=== PATIENT | female | born 1975 | race African-American/Black ===

== ENCOUNTER 2022-02-01 16:04 | Emergency (ER) | payer MEDICAID ==
[~2022-02-01] VITALS: Ht 167.6 cm; Wt 59.0 kg
[2022-02-01 17:27] LABS: BASOPHILS % 0.9 % (0.0-2.0); EOSINOPHILS % 2.2 % (0.0-5.0); HEMATOCRIT. 38.4 % (36.0-48.0); HEMOGLOBIN. 12.2 g/dL (12.0-16.0); LYMPHOCYTES % 36.9 % (20.0-50.0); MEAN CORPUSCULAR HEMOGLOBIN 23.9 pg (28.0-32.0); MEAN CORPUSCULAR VOLUME 75.6 fL (81.0-99.0); MEAN PLATELET VOLUME 7.1 fl (7.4-10.4); MONOCYTES % 6.3 % (2.0-8.0); NEUTROPHILS % 53.7 % (40.0-76.0); PLATELET 341 x1000/uL (130-400); RED BLOOD CELL COUNT 5.08 mill/uL (4.2-5.4); RED CELL DISTRIBUTION WIDTH 15.9 % (11.6-14.6)
[2022-02-01 17:39] LABS: CHLORIDE 105 mEq/L (98-107)
[2022-02-01 17:40] LABS: ETHANOL BLOOD < 10 mg/dL; HCG SCREEN NEGATIVE
[2022-02-01 19:10] LABS: *BARBITURATES SCREEN URINE NEGATIVE (NEGATIVE); *BENZODIAZEPINES SCREEN URINE NEGATIVE (NEGATIVE); CANNABINOID URINE SCREEN NEGATIVE (NEGATIVE); METHADONE URINE SCREEN NEGATIVE (NEGATIVE); OPIATES URINE SCREEN NEGATIVE (NEGATIVE); PHENCYCLIDINE URINE SCREEN NEGATIVE (NEGATIVE)
[2022-02-01 19:22] LABS: *AMPHETAMINES SCREEN URINE PRESUMTIVE POSITIVE (NEGATIVE); *COCAINE SCREEN URINE PRESUMTIVE POSITIVE (NEGATIVE)
[2022-02-01 21:20] VITALS: BP 115/80
== END 2022-02-01 21:20 | disposition home or self-care (01) ==
LOC: ER 16:04
DX: T40.5X1A Poisoning by cocaine, accidental (unintentional), initial encounter (principal); F14.188 Cocaine abuse with other cocaine-induced disorder; R55 Syncope and collapse; R06.81 Apnea, not elsewhere classified; T43.621A Poisoning by amphetamines, accidental (unintentional), initial encounter; F15.188 Other stimulant abuse with other stimulant-induced disorder; Y92.810 Car as the place of occurrence of the external cause
CPT/HCPCS: 36415; 71045; 80053; 80305; 80307; 80320; 80329; 82553; 83605; 84484; 84703; 85025; 93005; 99285; G0480